=== PATIENT | male | born 1975 | race African-American/Black ===

== ENCOUNTER 2018-12-05 03:25 | Emergency (ER) | payer OTHER ==
--- NOTE | 2018-12-05 03:47 | ED Physician Documentation ---
General Adult - HISTORIAN Historian: patient - HPI Stated Complaint: CPR Chief Complaint: CPR Onset: minutes (50) Timing: still present Severity: mild Further Comments: yes ([facility] the pt was seen "sniffing something" per other staff he was up and walking around at 0130 with no complaints. At 0200 the code was called with no pulse no resp. CPR was initated with AED no shock advised. CPR was continued. Narcan intranasally given per nurse at [facility] with no response. EMS did provide 3 doses of Epi and Narcan IV with resore of pulse. Intubation on scene with continued NSR. Pt is non responsive.) - ROS CONST: no problems - PAST HX Past History: other ("neck issues" ) Immunizations: referred to PCP Allergies/Adverse Reactions: Allergies Allergy/AdvReac Type Severity Reaction Status Date / Time No Known Allergies Allergy Verified 12/05/18 05:49 Home Medications: Ambulatory Orders Medication Instructions Recorded Unobtainable 12/05/18 - SOCIAL HX Smoking History: other (unknown) Alcohol Use: none Drug Use: none - FAMILY HX Family History: No - REVIEWED ASSESSMENTS Nursing Assessment Reviewed: Yes Vitals Reviewed: Yes ED Results Lab/Radiology - Orders Orders: ED Orders Category Date Time Status Place IV Lock 1T Care 12/05/18 03:30 Ordered CBC/PLATELET/DIFF Routine Lab 12/05/18 Ordered CMP Routine Lab 12/05/18 Ordered CREATINE KINASE Routine Lab 12/05/18 Ordered LACTATE Stat Lab 12/05/18 Ordered PT-INR Routine Lab 12/05/18 Ordered TROPONIN I (cTnI) Stat Lab 12/05/18 Ordered NORMAL SALINE @ 1000 MLS/HR ( 1000ml BOLUS) Med 12/05/18 03:31 Ordered 0.9 % Sodium Chloride [Normal Saline] 1,000 ml IV Q1H EKG WITH COMPARISON Stat Ther 12/05/18 Ordered General Adult Physical Exam - PHYSICAL EXAM GENERAL APPEARANCE: Unresponsive EENT: other (Pupils fixed and dilated ) NECK: normal inspection RESPIRATORY: no resp distress, chest non-tender, breath sounds normal (with bagging ), other (intubated ) CVS: reg rate & rhythm, heart sounds normal ABDOMEN: soft, no distension, non-tender BACK: normal inspection SKIN: warm/dry EXTREMITIES: non-tender NEURO: other (unresponsive ) Discharge Clincal Impression: Cardiac arrest Comments: 0400: Discussed case with Dr Renteria and he will accept transfer DG Condition: Serious Disposition: 02 XFER [facility]OSP Decision to Admit: [id number] Date of Decison to Admit: 12/05/18 Decision Time: 04:00
[2018-12-05] MEDS: 0.9 % SODIUM CHLORIDE 1,000 ML IV ONE ×2 (05:21→05:23)
[2018-12-05 05:51] VITALS: BP 195/144
--- NOTE | 2018-12-05 06:03 | Diagnostic Imaging Report ---
JASKARAN MARIN [facility] [address] [facility] [address] [place], [place]. [address] Report Submission Date: Dec 05, 2018 4:18:42 AM [employer]CTION [employer] Patient Study Name: AIDEE MARTI Date: Dec 05, 2018 3:36:17 AM [employer]CTION [employer] Modality Type: DX Gender: M Description: CHEST : 75 Institution: [facility] Physician: JASKARAN MARIN Portable chest History: Endotracheal tube placement Portable chest dated December 05, 2018 is without prior radiographs for comparison. An endotracheal tube projects with tip just above level of the clavicles. The cardiomediastinal silhouette is within normal limits by AP technique. Pulmonary vascularity is normal. There is no infiltrate or pleural effusion. The left costophrenic angle has been clipped. Impression: Endotracheal tube with the tip projecting just above the level of the clavicles. Otherwise, no active disease. Electronically signed on Dec 05, 2018 4:18:42 AM [employer] by: Anitha HERNANDEZ
[2018-12-05 07:10] LABS: eGFR (Non-African) > 60
[2018-12-05 07:11] LABS: BASOPHILS % 0.5 (0.0-1.5); EOSINOPHILS % 5.3 % (0.0-6.8); MEAN CORPUSCULAR HEMOGLOBIN 28.9 pg (28.0-34.0); MONOCYTES % 2.6 % (0.0-11.0); NEUTROPHILS # 4.9 # k/uL (1.4-7.7)
== END 2018-12-05 04:12 | disposition short-term general hospital (02) ==
LOC: ED 03:25
DX: I46.9 Cardiac arrest, cause unspecified (principal)
CPT/HCPCS: 36415; 71045; 80053; 82550; 83605; 84484; 85025; 85610; 99285; J7030; S1016